=== PATIENT | male | born 1955 | race Caucasian/White ===

== ENCOUNTER 2017-05-22 02:29 | Inpatient (IN) | payer OTHER ==
[2017-05-22 02:59] LABS: #Basophils 0.1 thou/uL (0.0-0.2); #Eosinphils 0.1 thou/uL (0.0-0.7); #Lymphocytes 2.5 thou/uL (1.20-3.40); #Monocytes 1.2 thou/uL (0.11-0.59); #Neutrophils 7.8 thou/uL (1.40-6.50); %Basophils 0.5 % (0.0-1.0); %Eosinophils 0.9 % (0.0-10.0); %Lymphocytes 21.7 % (21.0-51.0); %Monocytes 10.4 % (0.0-10.0); Hematocrit 45.8 % (42.0-52.0); Mean Platelet Volume 6.7 fL (7.4-10.4); Red Blood Cell (RBC) Count 4.68 mill/uL (4.70-6.10); White Blood Cell (WBC) Count 11.7 thou/uL (4.8-10.8)
[2017-05-22 03:11] LABS: ALT (SGPT) 91 U/L (8-55); AST (SGOT) 81 U/L (5-34); Alkaline Phosphatase 62 U/L (40-150); Anion Gap 9 mmol/L (10-20); BUN (Urea Nitrogen) 11 mg/dL (8.4-25.7); Bilirubin, Total 0.8 mg/dL (0.2-1.2); Calc. Creatinine Clearance 0 mL/min (70-130); Calcium 9.1 mg/dL (7.8-10.44); Carbon Dioxide 28 mmol/L (22-29); Chloride 100 mmol/L (98-107); Estimated GFR-MDRD Greater than 90; Globulin 2.9 g/dL (2.4-3.5); Lipase 25 U/L (8-78); Protein, Total 6.9 g/dL (6.0-8.3)
[2017-05-22] MEDS ORDERED: Ketorolac Tromethamine 30 MG/ML VIAL ONE (03:31)
[2017-05-22] MEDS ORDERED: Promethazine HCl 25 MG/ML VIAL ONE (03:31)
[2017-05-22] MEDS ORDERED: Piperacillin/Tazobactam 4.5 GM in Sodium Chloride 0.9% 100 ML IVPB SCH ×2 (04:45→14:00)
[2017-05-22] MEDS ORDERED: Ondansetron ODT 4 MG TAB SL PRN (05:50)
[2017-05-22] MEDS ORDERED: Ondansetron HCl/PF 4 MG/2 ML Vial IVP PRN ×2 (05:50→16:08)
[2017-05-22] MEDS ORDERED: Morphine 4 MG/ML Carpuject IVP PRN (07:30)
[2017-05-22] MEDS ORDERED: ISOVUE-370 76%-LOCM 1 ML ONE (07:51)
[2017-05-22] MEDS ORDERED: Morphine PF 1 MG/ML SYR IVP PRN (07:56)
[2017-05-22] MEDS ORDERED: Morphine 4 MG/ML VIAL SLOW IVP PRN ×2 (07:57→16:30)
--- NOTE | 2017-05-22 08:33 | RAD ---
ONE VIEW CHEST: History: Abdominal pain. Comparison: None. FINDINGS: Atherosclerosis of the aorta. Normal cardiac silhouette. The pulmonary vessels and hilum are normal. No consolidation or mass. No pneumothorax or osseous abnormality. IMPRESSION: No acute cardiopulmonary process. POS: [place]
[2017-05-22] MEDS: Sodium Chloride 0.9% 1,000 ML IV SCH ×2 (09:57→18:42)
--- NOTE | 2017-05-22 12:05 | CT ---
PRELIMINARY REPORT/[facility]/EMERGENCY AFTER HOURS PROCEDURE: Addendum created by Chivo Denson MD on 05/22/2017 4:37 AM Central Time ([place] & [place]) Findings discussed with Stan Segovia MD at time of interpretation. Addendum created by Chivo Denson MD on 05/22/2017 4:33 AM Central Time ([place]) Upon review of thinner axial images, the inflammatory process is affecting the appendix and not the c ecum. The inflammation is clearly centered around the abnormal proximal appendix which demonstrates m ultiple diverticula. The appearance is good for acute diverticulitis of the appendix; however, the no rmal architecture of the proximal appendix is distorted, both fluid-filled and irregular, potentially representing appendiceal abscess formation related to appendiceal perforation which could be result of either acute appendicitis or appendiceal diverticulitis. No free pneumoperitoneum. Recommend emergent surgical consultation. Addendum created by Chivo Denson MD on 05/22/2017 4:15 AM Central Time ([place]) Findings discussed with Stan Segovia MD at time of interpretation. Initial Report created on 05/22/2017 4:09 AM Central Time ([place] & [place]) EXAM: CT Abdomen and Pelvis With Intravenous Contrast EXAM DATE/TIME: Exam ordered 05/22/2017 3:41 AM CLINICAL HISTORY: 61 years old, male; Pain; Abdominal pain; Generalized; Prior surgery; Surgery type: Lithotripsy; Milla ent HX: 61 yo m presents to ed C/O abdominal pain onset 1800 last night. Pt states pain is in center of abdomen. States that he had a hotdog for lunch and states these usually do not cause pain. Also re ports constipation and intermittent nausea. Has h/o colitis and diverticulitis, states that it feels similar in his lower abdomen but bloating in upper abdomen is different. Pt recently had a viral uppe r respiratory illness a few days ago. TECHNIQUE: Axial computed tomography images of the abdomen and pelvis with intravenous contrast. All CT scans at this facility use one or more dose reduction techniques, viz.: automated exposure control; ma/kV adj ustment per patient size (including targeted exams where dose is matched to indication; i.e. head); or iterative reconstruction technique. Coronal reformatted images were created and reviewed. CONTRAST: 96 mL of [id number] administered intravenously. COMPARISON: No relevant prior studies available. FINDINGS: Lower thorax: No acute findings. ABDOMEN: Liver: Unremarkable. No mass. Gallbladder and bile ducts: Unremarkable. No calcified stones. No ductal dilation. Pancreas: Unremarkable. No mass. No ductal dilation. Spleen: Unremarkable. No splenomegaly. Adrenals: Unremarkable. No mass. Kidneys and ureters: Unremarkable. No solid mass. No hydronephrosis. Stomach and bowel: There is dense inflammation surrounding the base of the cecum and proximal appendi x, both of which contain numerous diverticula. The proximal appendix near the inflammation appears fl uid filled and distended while the more distal appendix is more normal in caliber. The appearance cou ld reasonably represent either cecal diverticulitis, diverticulitis of the appendix, or severe acute appendicitis. Diverticulosis of the right and left colon. Appendix: See above. PELVIS: Bladder: Unremarkable. No mass. Reproductive: Unremarkable as visualized. ABDOMEN and PELVIS: Intraperitoneal space: No pneumoperitoneum. No abscess. No significant fluid collection. Bones/joints: No acute fracture. No dislocation. Soft tissues: Unremarkable. Vasculature: Unremarkable. No abdominal aortic aneurysm. Lymph nodes: Unremarkable. No enlarged lymph nodes. IMPRESSION: There is dense inflammation surrounding the base of the cecum and proximal appendix, both of which co ntain numerous diverticula. The proximal appendix near the inflammation appears fluid filled and dist ended while the more distal appendix is more normal in caliber. The appearance could reasonably repre sent either cecal diverticulitis, diverticulitis of the appendix, or severe acute appendicitis. Thinn er axial cuts have been requested to attempt more definitive characterization. Recommend emergent evens gical consultation. Thank you for allowing us to participate in the care of your patient. Dictated and Authenticated by: Chivo Denson MD 05/22/2017 4:09 AM Central Time ([place] & [place]) FINAL REPORT EMERGENT AFTER HOURS CT ABDOMEN AND PELVIS WITH IV CONTRAST: Date: 05-22-17 History: Abdominal pain with onset at 1800 hours. Patient states the pain is in the center of the abd omen. History of colitis and diverticulitis. Comparison: None. FINDINGS: Inflammatory changes surrounding the cecal apex as well as the appendix in the right lower quadrant. As noted on preliminary report, this could be related to either diverticulitis or possibly appendicit is. This is difficult to delineate as the inflammatory changes are seen adjacent to both the cecal ap ex as well as surrounding large portion of the appendix. The appendix is fluid filled with mild enhan cement of the best but this could be reactive due to the adjacent inflammatory changes but could als o be secondary to appendicitis. Diverticuli are seen involving the cecum. Surgical consultation tony mmended. IMPRESSION: 1. Dense vascular calcifications in the abdominal aorta and iliac arteries. 2. Findings in agreement with the preliminary report by JOSE LUIS. POS: [place]
[2017-05-22] MEDS ORDERED: Bupivacaine/Epinephrine 0.25% 30 ML VIAL ONE (13:25)
[2017-05-22] MEDS ORDERED: Midazolam HCl 2 mg/2 ml Vial ONE (13:31)
[2017-05-22] MEDS ORDERED: Fentanyl 100 MCG/2 ML VIAL ONE (13:31)
[2017-05-22] MEDS ORDERED: HYDROcodone/Acetaminophen 10/325 mg Tablet PO PRN ×2 (16:08)
[2017-05-22] MEDS ORDERED: Dextrose 5% in Water 1,000 ML IV PRN (16:08)
[2017-05-22] MEDS ORDERED: Lorazepam 2 MG/ML VIAL SLOW IVP PRN (16:08)
[2017-05-22] MEDS ORDERED: Sodium Chloride 0.9% 1,000 ML IV SCH (16:08)
[2017-05-22] MEDS ORDERED: Promethazine HCl 25 MG/ML VIAL IM PRN (16:08)
[2017-05-22] MEDS ORDERED: hydrALAZINE 20 MG/ML VIAL SLOW IVP PRN (16:08)
[2017-05-22] MEDS ORDERED: Dextrose 50% Abboject 50 ML SYRINGE SLOW IVP PRN (16:08)
[2017-05-22 16:18] VITALS: TEMP 98.6
[2017-05-22] MEDS ORDERED: Morphine 2 mg/2ml in 0.9% NaCl PF SYRINGE SLOW IVP PRN (16:30)
[2017-05-22 18:41] VITALS: BP 150/78
[2017-05-22] MEDS ORDERED: Piperacillin/Tazobactam 3.375 GM in Sodium Chloride 0.9% 100 ML IVPB SCH (20:00)
[2017-05-22] MEDS ORDERED: Famotidine 20 MG TAB PO SCH (21:00)
[2017-05-22] MEDS ORDERED: Famotidine/PF 20 mg/2ml Vial SLOW IVP SCH (21:00)
--- NOTE | 2017-05-22 21:26 | OP ---
DATE OF PROCEDURE: 05/22/2017 PREOPERATIVE DIAGNOSIS: Acute appendicitis. POSTOPERATIVE DIAGNOSIS: Acute appendicitis. PROCEDURE: Laparoscopic appendectomy. SURGEON: Freedom Marte M.D. ANESTHESIA: General. ESTIMATED BLOOD LOSS: Minimal. COMPLICATIONS: None. SPECIMEN: Appendix. FINDINGS: Appendicitis. TECHNIQUE: The patient was taken to the operating room and placed supine on the table. After genera l anesthetic was obtained, a Johnson was placed. The abdomen was shaved, prepped and draped in a steri le fashion. Curved incision made below the umbilicus. Cautery was used to dissect down to and score the fascia. Abdominal cavity was entered bluntly using a Giselle clamp. Holding stitch of PDS was pl aced on each side of the fascia. Arias trocar was placed. High-flow pneumoperitoneum was obtained. A suprapubic 5-mm port and left lower quadrant 5-mm port were placed under direct camera visualizat ion. The cecum was rolled over to reveal acute appendicitis, there were some localized inflammatory change. The appendix was bluntly dissected away from the terminal ileum. The lateral cecum was mobi lized using cautery. A window was made at the base of the appendix. Laparoscopic stapler was fired across the base of the appendix. A small portion of the cecum was taken with the appendix given the inflammatory nature at the base. Appendix was placed in an Endo catch bag and brought out through th e Arias. The right lower quadrant and pelvis was irrigated using sterile solution. There is no dariana oing bleeding in the right lower quadrant. No purulence or damage to any intraabdominal structures. All port sites were infiltrated using local anesthetic. All ports were removed under camera visuali zation. Pneumoperitoneum was let down. PDS was used to close the fascial defect below the umbilicus . All incisions were irrigated and closed using 4-0 Monocryl and Dermabond. The patient went to rec overy in stable condition. All instrument counts, needle counts, and lap counts were correct.
--- NOTE | 2017-05-22 21:28 | HP ---
CHIEF COMPLAINT: Right lower quadrant pain. HISTORY OF PRESENT ILLNESS: This is a 61-year-old male who presents with pain that was severe, start ed last night in the right lower quadrant, described as 9/10 sharp, did not radiate, associated with nausea, no vomiting, no fevers or chills. He has never had this pain before. Denies history of shape carver david abdominal pain or inflammatory bowel disease. He has previously had left-sided diverticulitis, b ut symptoms were dissimilar to these, found to have evidence of severe right lower quadrant inflammat ory change and potentially appendicitis on a CT scan, admitted to my service overnight. PAST MEDICAL HISTORY: Hypertension, tobacco abuse. PAST SURGICAL HISTORY: Includes bilateral inguinal hernia. MEDICINES TAKEN DAILY: Amlodipine. ALLERGIES: LEVOFLOXACIN and PENICILLINS, although he is unsure of the PENICILLIN reaction, it was wh en he was a child. SOCIAL HISTORY: He smokes daily, drinks 6 beers a day. No other drugs. REVIEW OF SYSTEMS: Ten system review of systems otherwise negative unless described above. PHYSICAL EXAMINATION: VITAL SIGNS: Blood pressure is 150/86, pulse 89, respirations 20. He is afebrile. HEENT: Sclerae are anicteric. Oropharynx is clear. NECK: No lymphadenopathy. CHEST: Clear. HEART: Regular rate and rhythm. ABDOMEN: Soft, tender in the right lower quadrant with localized guarding, no rebound tenderness. N o abdominal hernias. EXTREMITIES: No ischemia or edema to extremities. LABORATORY DATA: White blood cell count is 11, hemoglobin 16. Creatinine 0.84. Liver function test s are elevated at 81 and 91, AST and ALT. CT scan shows inflammatory change in the right lower quadr ant. There is dilation of the appendix. ASSESSMENT: Likely acute appendicitis, less likely right-sided diverticulitis. PLAN: Diagnostic laparoscopy, laparoscopic appendectomy. Risks, benefits, and alternatives were dis cussed. He gives consent. We will do this today.
== END 2017-05-22 19:05 | disposition home or self-care (01) | DRG 343 ==
LOC: ERS 02:29 → SURG B 04:20
PROVIDERS: ADMIT Surgery; ATTEND Surgery
PROC: 0DTJ4ZZ Resection of Appendix, Percutaneous Endoscopic Approach (ICD-10-PCS; principal; 2017-05-22)
DX: K35.80 Unspecified acute appendicitis (principal); I10 Essential (primary) hypertension; F17.210 Nicotine dependence, cigarettes, uncomplicated
CPT/HCPCS: 36415; 71010; 74177; 80053; 83690; 85025; 88304; 93005; J1885; J2250; J2543; J2550; J3010; J7050

== ENCOUNTER 2017-11-26 11:42 | Outpatient (CLI) | payer OTHER ==
--- NOTE | 2017-11-26 14:08 | RAD ---
TWO VIEWS RIGHT HIP: HISTORY: Fall, hip pain. M25.551. FINDINGS: AP and frogleg views of the right hip were obtained. No evidence of right hip fractures, subluxations, or bony lesions seen. IMPRESSION: Normal 2 views right hip. POS: [facility]
== END 2017-11-26 11:43 | disposition home or self-care (01) ==
LOC: SCSRAD 11:42
DX: M25.551 Pain in right hip (principal)

== ENCOUNTER 2022-04-13 12:44 | Emergency (ER) | payer OTHER, SELFPAY ==
[2022-04-13] MEDS ORDERED: Ketorolac Tromethamine 30 MG/ML VIAL ONE (13:26)
[2022-04-13] MEDS ORDERED: Diazepam 5 MG TAB ONE (13:32)
== END 2022-04-13 14:11 | disposition home or self-care (01) ==
LOC: ERS 12:44
DX: M25.511 Pain in right shoulder (principal); I10 Essential (primary) hypertension; F17.210 Nicotine dependence, cigarettes, uncomplicated; Z79.899 Other long term (current) drug therapy
CPT/HCPCS: 96372; 99283; J1885